=== PATIENT | female | born 2000 | race African-American/Black ===

== ENCOUNTER 2022-02-15 07:41 | Outpatient (CLI) | payer OTHER, SELFPAY ==
--- NOTE | ~2022-02-15 | MR_ITS ---
EXAMINATION: MR knee RT wo con DATE: 02/15/2022 09:06 INDICATION: Chronic anterior and lateral right knee pain TECHNIQUE: Magnetic resonance imaging (MRI) of the right knee was performed without intravenous contr ast. Sequences included coronal PD-weighted FSE, coronal PD-weighted FS FSE, sagittal T2-weighted FS E, sagittal PD-weighted FS FSE and axial PD weighted fat saturated FSE. COMPARISON: None. FINDINGS: Medial compartment: Medial meniscus is normal. Articular cartilage is normal. Lateral compartment: Lateral meniscus is normal. Articular cartilage is normal. Patellofemoral compartment: Partial-thickness chondral fissure without degenerative subchondral changes at the inferolateral aspe ct of the lateral patellar facet. Trochlear cartilage is normal. Ligaments and tendons: Anterior and posterior cruciate ligaments are normal. The medial collateral ligament and fibular yamile ateral ligament complex are normal. The extensor mechanism is normal. The visualized medial and later al hamstring tendons as well as the iliotibial band are normal. Fluid: Physiologic amount of fluid in the joint space. No loose osteochondral bodies identified. Osseous/other: Normal marrow signal. No fracture or pathologic marrow replacing process. There is edema at the later al side of the infrapatellar fat pad position between the inferolateral margin of the patella and the superolateral margin of the trochlea which can be seen with fat pad impingement syndrome. IMPRESSION: 1. Single small partial-thickness chondral fissure at the inferolateral aspect of the lateral patella r facet. Otherwise normal cartilage at the right knee along with normal menisci and stabilizing ligam ents. 2. Edema at the lateral aspect of the infrapatellar fat pad which can be seen with fat pad impingemen t syndrome. Reviewed, dictated and finalized at location A. IMPRESSION: 1. Single small partial-thickness chondral fissure at the inferolateral aspect of the lateral patellar facet. Otherwise normal cartilage at the right knee carlo ng with normal menisci and stabilizing ligaments. 2. Edema at the lateral aspect of the infrapatellar fat pad which can be seen w ith fat pad impingement syndrome.
== END 2022-02-15 07:42 | disposition home or self-care (01) ==
PROVIDERS: PCP Orthopaedic Surgery; Visit Provider Orthopaedic Surgery
DX: M25.561 Pain in right knee (principal); G89.29 Other chronic pain
CPT/HCPCS: 73721